=== PATIENT | female | born 1995 | race Hispanic/Latino ===

== ENCOUNTER 2022-07-23 11:05 | Emergency (ER) | payer OTHER, SELFPAY ==
[2022-07-23 11:11] VITALS: BP 132/89; PULSE 90; RESP 16; TEMP 36.6; O2SAT 97; BMI 31.3
--- NOTE | 2022-07-23 12:25 | PC.NURSE ---
Pt injured back while lifting a heavy toolbox. Pt denies loss bowel/bladder.
[2022-07-23] MEDS: KETOROLAC 30 MG/ML VIAL 15 MG IM (13:15)
--- NOTE | 2022-07-23 13:50 | ED.BACK ---
HPI - Back Pain/Injury <LORRAINE Morales Last Filed: 07/23/22 18:01> General Chief Complaint: Back Pain/Injury Stated Complaint: thinks she tweaked her back Time Seen by Provider: 07/23/22 12:36 Source: patient History of Present Illness HPI Narrative: This is a 19-year-old female presents emergency department due to acute onset left-sided back pain after lifting up a heavy box. She states that the back pains round her thoracic area on the left side. She denies any chest pain and shortness of breath. She denies any urinary or bowel incontinence, fevers COVID saddle paresthesia, or any other concerning signs or symptoms. Related Data Previous Rx's Medication Instructions Recorded cyclobenzaprine 10 mg tablet 10 mg PO TID PRN muscle spasm #20 07/23/22 tabs Allergies Allergy/AdvReac Type Severity Reaction Status Date / Time No Known Drug Allergies Allergy Verified 07/23/22 11:12 Review of Systems <LORRAINE Morales Last Filed: 07/23/22 18:01> Review of Systems Narrative: GENERAL: Denies chills, fatigue, malaise, fever, sweats. HEENT: Denies sinus pain, ear pain, sore throat, difficulty swallowing, dizziness. RESPIRATORY: Denies dyspnea, cough, wheezing, hemoptysis, sputum. CARDIOVASCULAR: Denies chest pain, palpitations, orthopnea, edema, GASTROINTESTINAL: Denies nausea, vomiting, abdominal pain, diarrhea, constipation, melena. : Denies dysuria, frequency, incontinence, hematuria, urinary retention. MUSCULOSKELETAL: Left-sided back pain SKIN: Denies rash, skin lesions, or other NEUROLOGIC: Denies weakness, headache, numbness, change in speech, confusion, seizures, incoordination. PSYCHIATRIC: No concerning psychosocial issues. 12 point review of systems is negative except for those stated above Patient History <LORRAINE Morales Last Filed: 07/23/22 18:01> Social History Smoking Status: Unknown if ever smoked Smoking Status: Unknown if ever smoked alcohol intake frequency: holidays/special occasions only Substance Use Type: does not use Exam <LORRAINE Morales Last Filed: 07/23/22 18:01> Narrative Exam Narrative: GENERAL: Well-developed patient, in mild distress. HEAD: Atraumatic. Normocephalic. EYES: Pupils equal round and reactive. Extraocular motions intact. No scleral icterus. No injection or drainage. ENT: Nose without bleeding, purulent drainage. Throat without erythema, tonsillar hypertrophy or exudate. Airway patent. NECK: Trachea midline. Non tender CARDIOVASCULAR: Regular rate and rhythm without murmurs, gallops, or rubs. RESPIRATORY: Clear to auscultation. Breath sounds equal bilaterally. No wheezes, rales, or rhonchi. GASTROINTESTINAL: Abdomen soft, non-tender, nondistended. EXTREMITIES: No edema or joint tenderness. BACK: No midline tenderness to palpation throughout the spine. Mild left-sided parathoracic muscle tenderness to palpation. No bony crepitus felt. NEURO: AOx3. SKIN: No rash or erythema of visible areas Initial Vital Signs Initial Vital Signs: Vital Signs Temperature 97.8 F 07/23/22 11:11 Pulse Rate 90 07/23/22 11:11 Respiratory Rate 16 07/23/22 11:11 Blood Pressure 132/89 07/23/22 11:11 Pulse Oximetry 97 07/23/22 11:11 Oxygen Delivery Method Room Air 07/23/22 11:11 <Ludivina Hunter DO - Last Filed: 07/24/22 19:50> Initial Vital Signs Initial Vital Signs: Vital Signs Temperature 97.8 F 07/23/22 11:11 Pulse Rate 90 07/23/22 11:11 Respiratory Rate 16 07/23/22 11:11 Blood Pressure 132/89 07/23/22 11:11 Pulse Oximetry 97 07/23/22 11:11 Oxygen Delivery Method Room Air 07/23/22 11:11 Course <Arjun Abarca PA-C - Last Filed: 07/23/22 18:01> Orders Ordered: Discontinued Medications Ketorolac Tromethamine (Ketorolac 30 Mg/Ml Vial) 15 mg IM NOW ONE Stop: 07/23/22 13:09 Last Admin: 07/23/22 13:15 Dose: 15 mg Documented By: TIMI Vital Signs Vital signs: Vital Signs - 8 hr 07/23/22 11:11 07/23/22 14:07 Temperature 97.8 F Pulse Rate 90 57 L Respiratory Rate 16 16 Blood Pressure 132/89 124/70 Pulse Oximetry 97 99 Oxygen Delivery Method Room Air Room Air <Ludivina Hunter DO - Last Filed: 07/24/22 19:50> Orders Ordered: Discontinued Medications Ketorolac Tromethamine (Ketorolac 30 Mg/Ml Vial) 15 mg IM NOW ONE Stop: 07/23/22 13:09 Last Admin: 07/23/22 13:15 Dose: 15 mg Documented By: TIMI Vital Signs Vital signs: Vital Signs - 8 hr 07/23/22 11:11 07/23/22 14:07 Temperature 97.8 F Pulse Rate 90 57 L Respiratory Rate 16 16 Blood Pressure 132/89 124/70 Pulse Oximetry 97 99 Oxygen Delivery Method Room Air Room Air MDM - Back Pain/Injury <Arjun Abarca PA-C - Last Filed: 07/23/22 18:01> MDM Narrative Medical decision making narrative: MDM * differential diagnosis includes but not limited to vertebral fracture, muscular strain, pneumothorax * Prior records reviewed: Patient has not been here in the past * My lab interpretation: None obtained * My imgaing interpretation: None obtained * Clinical Decision Rules/Scores evaluated: None * Independent discussions with: None ED Course: Is a 27-year-old female presents to the emergency department due to suspected muscular strain of the back in the thoracic area. She is not present with any concerning symptoms such as saddle paresthesia, urinary or bowel incontinence, fevers, or any other concerning signs or symptoms. Denies any numbness. Acute in onset after lifting a heavy box. Patient was given IM Toradol and will be prescribed muscle relaxants as well as instructions for conservative and symptomatic therapy. Shared Decision Making: Discussed plan with patient who is comfortable with the plan Social Considerations: None Disposition: Discharge to home Discharge Plan Departure Patient Disposition: Home Clinical Impression: Back pain due to injury Instructions: DI for Muscle Strain, DI for Back Spasm Activity Restrictions/Additional Instructions: Thank you for coming to the [facility] Emergency Department today. As we discussed this highly suspect you have a muscular strain of your back on the left side. The Toradol giving today should help. You may also take the muscle relaxants as prescribed. Please note taken for driving up or any type of machinery. Also recommend light stretching and movement to help with the pain. You may also use Tylenol ibuprofen as needed for the pain. This should improve over time. I sent your medications to [facility] in [place]. I hope you feel better soon. Prescriptions: New cyclobenzaprine 10 mg tablet 10 mg PO TID PRN (Reason: muscle spasm) Qty: 20 0RF Referrals: Provider,Yassine VALDOVINOS [Primary Care Provider] - Stand Alone Forms: Patient Portal/API <Ludivina Hunter DO - Last Filed: 07/24/22 19:50> Cosign ED Attending Rony Attestation: I was immediately available in the department for consultation. Documentation has been reviewed.
[2022-07-23 14:07] VITALS: BP 124/70; PULSE 57; RESP 16; O2SAT 99
== END 2022-07-23 14:35 | disposition home or self-care (01) ==
PROVIDERS: Emergency Provider Physician Assistant Medical
DX: M54.6 Pain in thoracic spine (principal); S29.9XXA Unspecified injury of thorax, initial encounter; X50.0XXA Overexertion from strenuous movement or load, initial encounter
CPT/HCPCS: 96372; 99283; J1885